=== PATIENT | male | born 1980 | race Caucasian/White ===

== ENCOUNTER 2018-01-04 09:25 | Emergency (ER) | payer MEDICAID, MEDICARE ==
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
== END 2018-01-04 11:12 ==
LOC: JD.ED 09:25
DX: F19.10 Other psychoactive substance abuse, uncomplicated (principal); Z88.2 Allergy status to sulfonamides
CPT/HCPCS: 36415; 80053; 80306; 83735; 84443; 85007; 85027; 86140; 93005; 99285; G0480; 93010

== ENCOUNTER 2018-12-25 10:55 | Emergency (ER) | payer SELFPAY ==
[2018-12-25] MEDS ORDERED: Lidocaine 1% 50 ML MDV INJECT ONE (11:30)
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
== END 2018-12-25 13:25 | disposition home or self-care (01) ==
LOC: JD.ED 10:55
DX: S01.81XA Laceration without foreign body of other part of head, initial encounter (principal); S00.93XA Contusion of unspecified part of head, initial encounter; F17.210 Nicotine dependence, cigarettes, uncomplicated; Z88.2 Allergy status to sulfonamides; Y04.8XXA Assault by other bodily force, initial encounter
CPT/HCPCS: 12011; 99283; J2001